=== PATIENT | female | born 1990 | race Caucasian/White ===

== ENCOUNTER 2023-09-20 | Outpatient (REF) | payer BC, SELFPAY | END 2023-09-20 00:01 | disposition home or self-care (01) | LOC: HO.LNP | PROVIDERS: Visit Provider Physician Assistant | DX: N39.0 Urinary tract infection, site not specified (principal); N30.00 Acute cystitis without hematuria; R82.90 Unspecified abnormal findings in urine; N63.10 Unspecified lump in the right breast, unspecified quadrant; N63.20 Unspecified lump in the left breast, unspecified quadrant; R01.1 Cardiac murmur, unspecified | CPT/HCPCS: 87086; 87088; 87186 ==

== ENCOUNTER 2023-09-20 13:04 | Outpatient (AMB) | payer BC, SELFPAY ==
--- NOTE | 2023-09-20 13:07 | A.OFFPC_ITS ---
Vital Signs 09/20/23 13:15 Height 5 ft 2 in Weight 155 lb 4 oz BMI 28.4 BP 124/80 Blood Pressure Location Lt brachial Position Sitting Respiration 12 Pulse 67 Pulse Source Pulse Oximeter Temp 98.6 F Temp Source Oral Pulse Oximetry (%) 99 Oxygen Delivery Method Room Air Intake Visit Reasons: [employer]/Heart murmur Intake Note: New patient visit. Hasn't seen pcp in over 6 years. 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 Is last menstrual period known: Yes Last menstrual period: 09/02/23 Allergies No Known Allergies Allergy (Verified 09/20/23 13:10) Medication List - Last Reconciled 09/20/23 by Tiffanie Mccallum PA-C metronidazole 0.75%(37.5mg/5gram) 1 appful vaginal BEDTIME multivitamin 1 tab PO DAILY tretinoin 0.05% 1 appl topical BEDTIME Tobacco use date assessed: 09/20/23 Dental Screening Dental Screen Date: 09/20/23 Did you have a dental visit in the last 12 months?: Yes Did you have a dental problem in the last 6 months where you did not have access to dental care?: No Was dental information given to patient?: Patient has dentist HPI [employer]/Heart murmur HPI Details Pt is a 33 y/o female who presents today to establish care. 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 States that she has not seen anyone consistently for a long time. CV: Bp today in the office is 124/80. She states that she went for a physical and someone told her that she had a slight murmur. She is worried about this. She has not noticed any chest pain or shortness a breath with exercise. She sometimes is getting palpitations especially if she stands for a long time or if she goes to get up quickly. These are not that frequent but she has noticed it with some frequency for the past year. She says it does happen about 1 to 2 times a week. It does not make her feel dizzy. No syncope with this. She does do intermittent fasting and does endorse not drinking enough water. Urology: She complains today of dysuria and increased urinary frequency. No fever or chills. 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 She is concerned because her mother does not get any sort of health maintenance testing and patient states that at times she feels like she can feel a lump in both of her breasts. She is noticed this about the last 2 months. She says that she can definitely feel something in her right breast in that it feels like a nodule. It is on the upper outer quadrant. She states that the other lumps that she notices feels like it could be her chest wall but she thinks it is the breast tissue. She states that it is on the medial aspect bilaterally. She denies any nipple drainage or family history of breast or ovarian cancer. She would like screening mammograms. Fam hx: Father has CAD, prostate ca. PFSH Medical History (Updated 09/20/23 @ 14:12 by Tiffanie Mccallum PA-C) Memory loss Headache PTSD (post-traumatic stress disorder) Depression Anxiety Family History (Updated 09/20/23 @ 13:20 by Brandie Reeder CMA) Mother HTN (hypertension) Father Hypercholesteremia HTN (hypertension) Cardiovascular disease Prostate cancer Alcoholism Paternal Grandmother Cardiovascular disease Other FH: mental illness Substance abuse Social History (Updated 09/20/23 @ 13:15 by Brandie Reeder CMA) Housing: Apartment Patient Tobacco Use Status: Former Tobacco user Cigarette Packs Per Day: 0.5 Years Smoked: 16 e-Cigarette/Vaping Use: Former Use service: No Current occupational status: employed 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 ) Cognitive needs: No Hearing needs: No Vision needs: No Female Reproductive History Menstrual Date of last menstrual period: 09/02/23 Questionnaire PHQ-9 Over the last 2 weeks, how often have you been bothered by any of the following problems? 1. Little interest or pleasure in doing things: not at all 2. Feeling down, depressed, or hopeless: not at all 3. Trouble falling or staying asleep, or sleeping too much: more than half the days 4. Feeling tired or having little energy: more than half the days 5. Poor appetite or overeating: more than half the days 6. Feeling bad about yourself - or that you are a failure or have let yourself or your family down: not at all 7. Trouble concentrating on things, such as reading the newspaper or watching television: not at all 8. Moving or speaking so slowly that other people could have noticed. Or the opposite - being so fidgety or restless that you have been moving around a lot more than usual: not at all 9. Thoughts that you would be better off or of hurting yourself in some way: not at all Total score: 6 Depression Screening Interpretation: Positive Depression Screening Done: Yes 91409 - PHQ-9 Billing: Yes Source: Developed by Drs. Ok Auguste, Brittni Carcamo, Brendan Rea and colleagues, with an educational james from [employer]. Thrive Questionnaire Date Thrive assessed: 09/20/23 I am a: Patient What is your living situation today?: I have a steady place to live Within the past 12 months, did the food you bought not last and you didn't have the money to get more?: Never true Within the past 12 months, did you worry whether your food would run out before you got money to buy more?: Never true Do you have trouble paying for medicines?: No Do you have trouble getting transportation to medical appointments?: No Do you have trouble paying your heating and electricity bill?: No Do you have trouble taking care of your child, family member or friend?: No Do you have trouble with day-to-day activities such as bathing, preparing meals, shopping, managing finances, etc.?: No Are you currently unemployed and looking for a job?: No Are you interested in more education?: No Please select the resources that you would like help with: None Currently or been in a relationship where the following occur: no concerns reported THRIVE Score: 0 AUDIT C Alcohol Use Questionnaire (AUDIT-C) 1. How often do you have a drink containing alcohol?: Never (Not recently ) 3. How often do you have six or more drinks on one occasion?: Never Total Score: 0 MAURICE-7 AMB Questionnaire MAURICE-7 Date MAURICE - 7 assessed: 09/20/23 Feeling nervous, anxious, or on edge: 1 = Several days Not being able to stop or control worryin = Several days Worrying too much about different things: 1 = Several days Trouble relaxin = Several days Being so restless that it is hard to sit still: 1 = Several days Becoming easily annoyed or irritable: 2 = More than half the days Feeling afraid as if something awful might happen: 0 = Not at all Total MAURICE-7 score (0-4 normal; 5-9 mild; 10-14 moderate; 15-21 severe): 7 Source: Developed by Drs. Ok Auguste, Brittni Carcamo, Brendan Rea and colleagues, with an educational james from [employer]. MAURICE-7 Assessment Billing MAURICE-7 Assessment Tool: MAURICE-7 Assessment 53199 Physical exam (Primary Care) Vital Signs: Last Vital Signs Temp 98.6 F 09/20/23 13:15 Pulse 67 09/20/23 13:15 Resp 12 09/20/23 13:15 BP 124/80 09/20/23 13:15 Pulse Ox 99 09/20/23 13:15 Oxygen Delivery Method Room Air 09/20/23 13:15 BMI result Body Mass Index 28.4 Tobacco/Smoking Status: Tobacco use Status Tobacco use date assessed 09/20/23 09/20/23 13:17 Patient Tobacco Use Status Former Tobacco user 09/20/23 13:17 e-Cigarette/Vaping Use Former Use 09/20/23 13:17 PHQ-9: PHQ-9 Score PHQ-9: Total score 6 09/20/23 13:47 Depression Screening Interpretation: Positive Thrive Assessment: Date of Thrive Assessment Date Thrive assessed 09/20/23 09/20/23 13:46 Currently or been in a relationship where the following occur: no concerns reported Const Orientation/consciousness: patient oriented x3 HENMT Ears: hearing grossly normal bilaterally Neck Thyroid: Thyroid normal Carotids: normal carotid upstroke Lymphatic: no lymphadenopathy noted Chest Breast/axilla inspection: normal inspection of the breasts Breast/axilla palpation: normal palpation of the breasts and axillary lymphadenopathy Resp Auscultation: clear to auscultation bilaterally Cardio Rate: regular rate Rhythm: regular rhythm Heart sounds: S1 normal heart sound present and S2 normal heart sound present GI Inspection: Yes normal to inspection Palpation (GI): Soft to palpation and Other GI palpation findings present (nontender, no cva tenderness) Auscultation: normoactive bowel sounds Skin General skin exam: no rashes or lesions noted Neuro General: patient oriented x3, gait normal and no focal motor deficits Office Procedures EKG Details: EKG today in the office is normal sinus rhythm with nonspecific STT wave abnormalities. No prior study to compare. [id number], Complete Assessment and Plan Assessment & Plan (1) Palpitations: Code(s): R00.2 - Palpitations Plan: Labs ordered today. EKG today in office is normal sinus rhythm. Holter monitor ordered. (2) Murmur: Code(s): R01.1 - Cardiac murmur, unspecified Plan: Echo ordered (3) UTI (urinary tract infection): Code(s): N39.0 - Urinary tract infection, site not specified Qualifiers: Hematuria presence: without hematuria Urinary tract infection type: acute cystitis Qualified Code(s): N30.00 - Acute cystitis without hematuria Plan: We will start on Macrobid. UA and culture ordered. We will follow up pending test results. (4) Bilateral breast lump: Code(s): N63.10 - Unspecified lump in the right breast, unspecified quadrant; N63.20 - Unspecified lump in the left breast, unspecified quadrant Plan: Diagnostic mammogram and ultrasound ordered. No palpable or notable masses on exam Orders: Orders Comprehensive Met. Panel Today N30.00 - Acute cystitis without hematuria, N63.10 - Unspecified lump in the right breast, unspecified quadrant, N63.20 - Unspecified lump in the left breast, unspecified quadrant, R01.1 - Cardiac murmur, unspecified Complete Blood Count Auto Diff Today N30.00 - Acute cystitis without hematuria, N63.10 - Unspecified lump in the right breast, unspecified quadrant, N63.20 - Unspecified lump in the left breast, unspecified quadrant, R01.1 - Cardiac murmur, unspecified Lipid Panel Today N30.00 - Acute cystitis without hematuria, N63.10 - Unspecified lump in the right breast, unspecified quadrant, N63.20 - Unspecified lump in the left breast, unspecified quadrant, R01.1 - Cardiac murmur, unspecified Vitamin B12 and Folate Today N30.00 - Acute cystitis without hematuria, N63.10 - Unspecified lump in the right breast, unspecified quadrant, N63.20 - Unspecified lump in the left breast, unspecified quadrant, R01.1 - Cardiac murmur, unspecified CA echo limited Today R01.1 - Cardiac murmur, unspecified US breast RT limited Today N63.10 - Unspecified lump in the right breast, unspecified quadrant, N63.20 - Unspecified lump in the left breast, unspecified quadrant ECG holter monitor 24 hour Today R00.2 - Palpitations Urine Culture Today N30.00 - Acute cystitis without hematuria, N39.0 - Urinary tract infection, site not specified, N63.10 - Unspecified lump in the right breast, unspecified quadrant, N63.20 - Unspecified lump in the left breast, unspecified quadrant, R01.1 - Cardiac murmur, unspecified TSH reflex Free T4 Today N30.00 - Acute cystitis without hematuria, N63.10 - Unspecified lump in the right breast, unspecified quadrant, N63.20 - Unspecified lump in the left breast, unspecified quadrant, R01.1 - Cardiac murmur, unspecified MM diagnostic mammo BI Today N63.10 - Unspecified lump in the right breast, unspecified quadrant, N63.20 - Unspecified lump in the left breast, unspecified quadrant US breast LT limited Today N63.10 - Unspecified lump in the right breast, unspecified quadrant, N63.20 - Unspecified lump in the left breast, unspecified quadrant Medications: New nitrofurantoin monohyd/m-cryst 100 mg (Macrobid) must administer with a meal/food 100 mg PO Q12H 7 days 14 caps 0RF Coding Level of Care Code New Pt Level 4 (96583) Complex EM visit Add On G2211 Diagnoses Palpitations R00.2 Murmur R01.1 Acute cystitis without hematuria N30.00 Hematuria presence: without hematuria Urinary tract infection type: acute cystitis Bilateral breast lump N63.10; N63.20 CPT Codes EKG - CPT: 29807-[id number], Complete ([id number]) Additional Codes MAURICE-7 Assessment Billing - MAURICE-7 Assessment Tool: MAURICE-7 Assessment 47617 ([id number])
[2023-09-20 13:15] VITALS: BP 124/80; PULSE 67; RESP 12; TEMP 37; O2SAT 99; BMI 28.4
== END 2023-09-20 14:51 | disposition home or self-care (01) ==
PROVIDERS: Visit Provider Physician Assistant
DX: R00.2 Palpitations (principal); R01.1 Cardiac murmur, unspecified; N30.00 Acute cystitis without hematuria; N63.11 Unspecified lump in the right breast, upper outer quadrant
CPT/HCPCS: 93000; 99204

== ENCOUNTER 2023-09-26 07:33 | Outpatient (REF) | payer BC, SELFPAY ==
[2023-09-26 11:46] LABS: MANUAL DIFF FLAG NO
[2023-09-26 11:53] LABS: Basophils Percent Auto 0.3 % (0-2); Eosinophils Absolute Auto 0.1 X10*3/uL (0.0-0.4); Eosinophils Percent Auto 1.5 % (0-4); Hematocrit 38.7 % (37.0-47.0); Hemoglobin 12.6 g/dl (12.0-16.0); Imm Gran Abs Auto 0.01 X10*3/uL (0.00-0.03); Imm Gran Pct Auto 0.2 % (0.0-0.4); Lymphocytes Absolute Auto 2.2 X10*3/uL (1.2-4.9); Lymphocytes Percent Auto 36.1 % (20-40); Mean Corpuscular HGB Conc 32.6 g/dl (31.0-35.0); Mean Corpuscular Hemoglobin 29.3 pg (27.0-33.0); Mean Platelet Volume 10.6 fL (9.4-12.3); Monocytes Absolute Auto 0.4 X10*3/uL (0.1-1.2); Monocytes Percent Auto 6.8 % (2-11); Neutrophils Absolute Auto 3.3 x10*3/uL (2.0-8.3); Neutrophils Percent Auto 55.1 % (45-73); Platelet Count 253 X10*3/uL (160-400); Red Cell Distribution Width 13.2 % (11.0-16.0)
[2023-09-26 12:55] LABS: Alanine Aminotransferase 14 U/L (0-31); Albumin Level 4.1 g/dL (3.5-5.0); Alkaline Phosphatase 40 U/L (39-117); Anion Gap 10 (12-20); Aspartate Amino Transferase 15 U/L (5-31); Bilirubin Total 0.4 mg/dL (0.0-1.0); Blood Urea Nitrogen 20 mg/dL (9-16); Calcium 9.6 mg/dL (8.4-10.2); Carbon Dioxide 26 mmol/L (22-29); Chloride 108 mmol/L (96-108); Cholesterol 174 mg/dL (<200); Estimated Glomerular Filt Rate > 60; Glucose Random 90 mg/dL (60-115); HDL Cholesterol 41 mg/dL (>40); LDL Cholesterol Calculated 116 mg/dL (<100); Potassium 4.2 mmol/L (3.3-5.1); Sodium 140 mmol/L (135-145); Total Protein 6.9 g/dL (6.5-8.0); Triglycerides 89 mg/dL (<150)
[2023-09-26 12:58] LABS: TSH reflex Free T4 1.63 uIU/mL (0.32-4.0)
[2023-09-26 13:07] LABS: Folate 11.8 ng/mL (> or = 4.0); Vitamin B12 446 pg/mL (200-900)
== END 2023-09-26 07:34 | disposition home or self-care (01) ==
LOC: HO.WFDLDS 07:33
PROVIDERS: Visit Provider Physician Assistant
DX: Z13.6 Encounter for screening for cardiovascular disorders (principal); N30.00 Acute cystitis without hematuria; R01.1 Cardiac murmur, unspecified; N63.10 Unspecified lump in the right breast, unspecified quadrant; N63.20 Unspecified lump in the left breast, unspecified quadrant
CPT/HCPCS: 36415; 80053; 80061; 82607; 82746; 84443; 85025